=== PATIENT | female | born 1965 | race Caucasian/White ===

== ENCOUNTER → 2020-11-05 | Outpatient (CLI) | payer OTHER ==
[~2020-11-05] MED LIST: BENTYL 20MG TAB20 MG PO; COZAAR50 MG PO; FLAGYL500 MG PO; FLORASTOR250 MG PO; HYDROCODON-ACE1 EAC4 PO; IBUPROFEN600 MG PO; IMITREX100 MG PO; MIRALAX17 GM PO; NAPROXEN250 MG PO; NEURONTIN 400400 MG PO; NORCO 5-325 TA1 EACH PO; PHENERGAN 25 MG25 MG PR; TOPROL XL50 MG PO; TYLENOL W/CODEIN1 E2 PO; ZOFRAN 4 MG TAB4 MG PO
== END ==
LOC: KOH-I 13:42
DX: M25.571 Pain in right ankle and joints of right foot (principal); M79.671 Pain in right foot; S92.191A Other fracture of right talus, initial encounter for closed fracture; X58.XXXA Exposure to other specified factors, initial encounter
CPT/HCPCS: 73610; 73630

== ENCOUNTER → 2020-11-26 | Outpatient (CLI) | payer OTHER | LOC: KOH-I 13:52 | DX: M89.8X7 Other specified disorders of bone, ankle and foot (principal) | CPT/HCPCS: 73630 ==

== ENCOUNTER → 2020-12-07 | Outpatient (CLI) | payer OTHER | LOC: KOH-I 09:45 | DX: S93.491A Sprain of other ligament of right ankle, initial encounter (principal); S86.311A Strain of muscle(s) and tendon(s) of peroneal muscle group at lower leg level, right leg, initial encounter; S90.01XA Contusion of right ankle, initial encounter; S92.191A Other fracture of right talus, initial encounter for closed fracture; X58.XXXA Exposure to other specified factors, initial encounter | CPT/HCPCS: 73721 ==

== ENCOUNTER 2020-12-09 09:19 | Emergency (ER) | payer OTHER ==
[~2020-12-09 09:19] MED LIST changes: -BENTYL 20MG TAB20 MG PO; -FLAGYL500 MG PO; -FLORASTOR250 MG PO; -HYDROCODON-ACE1 EAC4 PO
[2020-12-09] MEDS ORDERED: HYDROCODON-ACE1 EAC4 PO (12:18)
== END 2020-12-09 12:50 | disposition home or self-care (01) ==
LOC: ER1 09:19
DX: M25.571 Pain in right ankle and joints of right foot (principal); M79.671 Pain in right foot; I10 Essential (primary) hypertension
CPT/HCPCS: 73610; 73630; 99283

== ENCOUNTER → 2021-01-29 | Outpatient (CLI) | payer OTHER ==
[~2021-01-29] MED LIST changes: +BENTYL 20MG TAB20 MG PO; +FLAGYL500 MG PO; +FLORASTOR250 MG PO; +HYDROCODON-ACE1 EAC4 PO
== END ==
LOC: KOH-I 09:04
DX: S92.001A Unspecified fracture of right calcaneus, initial encounter for closed fracture (principal)
CPT/HCPCS: 73610; 73630

== ENCOUNTER 2021-03-10 20:33 | Emergency (ER) | payer OTHER ==
[~2021-03-10 20:33] MED LIST changes: -BENTYL 20MG TAB20 MG PO; -FLAGYL500 MG PO; -FLORASTOR250 MG PO
[2021-03-10 21:11] LABS: HEMOGLOBIN 13.4 gm/dl (12.3-15.3); RED BLOOD COUNT 4.56 M/UL (4.00-5.10); WHITE BLOOD COUNT 7.5 K/UL (4.5-11.0)
[2021-03-10 21:27] LABS: BUN/CREATININE RATIO 14 (0-10)
[2021-03-11] MEDS ORDERED: FLAGYL500 MG PO (00:09)
[2021-03-11] MEDS ORDERED: FLORASTOR250 MG PO (00:09)
[2021-03-11] MEDS ORDERED: BENTYL 20MG TAB20 MG PO (00:09)
== END 2021-03-11 00:35 | disposition home or self-care (01) ==
LOC: ER1 20:33
PROVIDERS: Physician Assistant Medical
DX: K52.9 Noninfective gastroenteritis and colitis, unspecified (principal); I10 Essential (primary) hypertension; Z90.49 Acquired absence of other specified parts of digestive tract
CPT/HCPCS: 80053; 81001; 83690; 85025; 96374; 96375; 96376; 99284; J2270; J2405; J2550; Q9967

== ENCOUNTER 2021-08-03 20:12 | Emergency (ER) | payer OTHER ==
[~2021-08-03 20:12] MED LIST changes: +BENTYL 20MG TAB20 MG PO; +FLAGYL500 MG PO; +FLORASTOR250 MG PO
[2021-08-03 22:37] LABS: HEMOGLOBIN 13.9 gm/dl (12.3-15.3); RED BLOOD COUNT 4.71 M/UL (4.00-5.10)
[2021-08-04 00:17] LABS: BUN/CREATININE RATIO 17 (0-10)
[2021-08-04] MEDS ORDERED: ZOFRAN ODT 4 MG4 MG SL (00:23)
[2021-08-04] MEDS ORDERED: BENTYL 20MG TAB20 MG PO (00:23)
== END 2021-08-04 01:00 | disposition home or self-care (01) ==
LOC: ER1 20:12
PROVIDERS: Emergency Medicine
DX: R10.9 Unspecified abdominal pain (principal); R11.2 Nausea with vomiting, unspecified; R19.7 Diarrhea, unspecified; K21.9 Gastro-esophageal reflux disease without esophagitis; R00.0 Tachycardia, unspecified; E78.5 Hyperlipidemia, unspecified; Z90.49 Acquired absence of other specified parts of digestive tract
CPT/HCPCS: 80053; 81001; 83690; 85025; 96374; 96375; 96376; 99284; J2270; J2405; Q9967

== ENCOUNTER 2021-09-10 21:10 | Emergency (ER) | payer OTHER ==
[~2021-09-10 21:10] MED LIST changes: +ZOFRAN ODT 4 MG4 MG SL
[2021-09-10 21:48] LABS: HEMOGLOBIN 12.8 gm/dl (12.3-15.3); RED BLOOD COUNT 4.34 M/UL (4.00-5.10); WHITE BLOOD COUNT 5.3 K/UL (4.5-11.0)
[2021-09-10 23:14] LABS: BUN/CREATININE RATIO 11 (0-10)
== END 2021-09-10 23:30 | disposition left against medical advice (07) ==
LOC: ER1 21:10
PROVIDERS: Physician Assistant
DX: R10.9 Unspecified abdominal pain (principal); R10.813 Right lower quadrant abdominal tenderness; I10 Essential (primary) hypertension; Z86.73 Personal history of transient ischemic attack (TIA), and cerebral infarction without residual deficits; Z88.0 Allergy status to penicillin; Z88.2 Allergy status to sulfonamides; Z88.8 Allergy status to other drugs, medicaments and biological substances
CPT/HCPCS: 80053; 81001; 83690; 85025; 99283

== ENCOUNTER 2022-01-28 16:27 | Emergency (ER) | payer OTHER ==
[2022-01-28 17:20] LABS: HEMOGLOBIN 14.2 gm/dl (12.3-15.3); RED BLOOD COUNT 4.79 M/UL (4.00-5.10); WHITE BLOOD COUNT 7.1 K/UL (4.5-11.0)
[2022-01-28 17:37] LABS: BUN/CREATININE RATIO 18 (0-10)
[2022-01-28] MEDS ORDERED: PHENERGAN 25 MG25 M1 PO (20:39)
== END 2022-01-28 21:00 | disposition home or self-care (01) ==
LOC: ER1 16:27
PROVIDERS: Physician Assistant
DX: R10.9 Unspecified abdominal pain (principal); R10.813 Right lower quadrant abdominal tenderness; I10 Essential (primary) hypertension
CPT/HCPCS: 80053; 81001; 82150; 83690; 85025; 96374; 96375; 99284; J2270; J2405; Q9967

== ENCOUNTER 2022-03-25 21:02 | Emergency (ER) | payer OTHER ==
[~2022-03-25 21:02] MED LIST changes: +PHENERGAN 25 MG25 M1 PO
[2022-03-25 21:53] LABS: HEMOGLOBIN 13.7 gm/dl (12.3-15.3); RED BLOOD COUNT 4.65 M/UL (4.00-5.10); WHITE BLOOD COUNT 6.2 K/UL (4.5-11.0)
[2022-03-25 22:13] LABS: BUN/CREATININE RATIO 9 (0-10)
[2022-03-26] MEDS ORDERED: ZOFRAN ODT 4 MG4 MG PO (04:29)
[2022-03-26] MEDS ORDERED: BENTYL 20MG TAB20 MG PO (04:29)
== END 2022-03-26 04:49 | disposition home or self-care (01) ==
LOC: ER1 21:02
PROVIDERS: Physician Assistant
DX: U07.1 COVID-19 (principal); R10.31 Right lower quadrant pain; R10.813 Right lower quadrant abdominal tenderness; I10 Essential (primary) hypertension; G43.909 Migraine, unspecified, not intractable, without status migrainosus; Z90.49 Acquired absence of other specified parts of digestive tract
CPT/HCPCS: 71045; 80053; 81001; 83690; 83735; 85025; 96374; 96375; 96376; 99284; J2270; J2405; Q9967